=== PATIENT | female | born 1985 | race African-American/Black ===

== ENCOUNTER 2019-03-09 09:45 | Emergency (ER) | payer OTHER, MEDICAID ==
[~2019-03-09] VITALS: Ht 165.1 cm; Wt 107.0 kg
[2019-03-09 10:30] VITALS: BP 122/57
== END 2019-03-09 11:21 | disposition home or self-care (01) ==
LOC: ER 09:45
DX: J06.9 Acute upper respiratory infection, unspecified (principal)
CPT/HCPCS: 99283

== ENCOUNTER 2019-03-10 09:54 | Emergency (ER) | payer MEDICAID ==
[~2019-03-10] VITALS: Ht 165.1 cm; Wt 107.0 kg
[2019-03-10] MEDS ORDERED: ACETAMINOPHEN 325MG TABLET PO STA (13:09)
[2019-03-10] MEDS ORDERED: ALBUTEROL (0.083%) 2.5MG/3ML NEB HHN STA (13:09)
[2019-03-10 13:54] VITALS: BP 134/79
== END 2019-03-10 13:56 | disposition home or self-care (01) ==
LOC: ER 10:05
DX: R05 Cough (principal); R06.02 Shortness of breath; R11.10 Vomiting, unspecified
CPT/HCPCS: 71045; 81025; 94640; 99283; J7611; Z7610

== ENCOUNTER 2021-05-25 15:21 | Emergency (ER) | payer MEDICAID ==
[~2021-05-25] VITALS: Ht 165.1 cm; Wt 98.0 kg
[2021-05-25 15:30] VITALS: BP 139/84
[2021-05-25] MEDS ORDERED: HYDR453.3 TP (15:57)
== END 2021-05-25 16:35 | disposition home or self-care (01) ==
LOC: ER 15:21
DX: L20.9 Atopic dermatitis, unspecified (principal); L81.0 Postinflammatory hyperpigmentation; Z98.51 Tubal ligation status
CPT/HCPCS: 99282

== ENCOUNTER 2021-08-06 16:55 | Emergency (ER) | payer MEDICAID ==
[~2021-08-06] VITALS: Ht 165.1 cm; Wt 96.0 kg
[~2021-08-06 16:55] MED LIST: HYDR453.3 TP
[2021-08-06 17:01] VITALS: BP 146/95
[2021-08-06] MEDS ORDERED: CYCL10TA21 MT (23:33)
[2021-08-06] MEDS ORDERED: NAPR-1176 MT (23:33)
== END 2021-08-06 20:17 | disposition left against medical advice (07) ==
LOC: ER 16:55
DX: Z53.21 Procedure and treatment not carried out due to patient leaving prior to being seen by health care provider (principal)

== ENCOUNTER 2021-08-06 22:12 | Emergency (ER) | payer MEDICAID ==
[~2021-08-06] VITALS: Ht 172.7 cm; Wt 100.0 kg
[2021-08-06] MEDS ORDERED: CYCLOBENZAPRINE 10MG TABLET PO ONE (23:30)
[2021-08-06] MEDS ORDERED: KETOROLAC 30MG/ML VIAL IM ONE (23:30)
[2021-08-06] MEDS ORDERED: CYCL10TA21 MT (23:33)
[2021-08-06] MEDS ORDERED: NAPR-1176 MT (23:33)
[2021-08-07 00:27] VITALS: BP 122/87
[2021-08-07] MEDS ORDERED: CYCLOBENZAPRINE 10MG TABLET PO SCH (00:30)
== END 2021-08-07 00:33 | disposition home or self-care (01) ==
LOC: ER 22:12
DX: S80.12XA Contusion of left lower leg, initial encounter (principal); S80.11XA Contusion of right lower leg, initial encounter; W22.12XA Striking against or struck by front passenger side automobile airbag, initial encounter; V49.59XA Passenger injured in collision with other motor vehicles in traffic accident, initial encounter; Y93.89 Activity, other specified; Y92.488 Other paved roadways as the place of occurrence of the external cause
CPT/HCPCS: 81025; 96372; 99283; J1885

== ENCOUNTER 2022-06-25 12:21 | Emergency (ER) | payer MEDICAID ==
[~2022-06-25] VITALS: Ht 165.1 cm; Wt 98.0 kg
[~2022-06-25 12:21] MED LIST changes: +CYCL10TA21 MT; +NAPR-1176 MT
[2022-06-25] MEDS ORDERED: KETOROLAC 60MG/2ML VIAL IM ONE (13:15)
[2022-06-25 13:25] LABS: CLARITY URINE CLOUDY (CLEAR); COLOR URINE YELLOW (YELLOW); KETONES URINE TRACE (NEGATIVE); LEUKOCYTE ESTERASE URINE 3+ (NEGATIVE); NITRITE URINE NEGATIVE (NEGATIVE); OCCULT BLOOD URINE NEGATIVE (NEGATIVE); PROTEIN URINE TRACE (NEGATIVE)
[2022-06-25] MEDS ORDERED: CEPH500C2 MT (16:00)
[2022-06-25] MEDS ORDERED: TOPUD PO (16:01)
[2022-06-25 16:39] VITALS: BP 130/70
== END 2022-06-25 16:41 | disposition home or self-care (01) ==
LOC: ER 12:21
DX: N39.0 Urinary tract infection, site not specified (principal); Z20.822 Contact with and (suspected) exposure to COVID-19
CPT/HCPCS: 81003; 81025; 87086; 87426; 87804; 96372; 99283; C9803; J1885

== ENCOUNTER 2022-06-30 12:02 | Emergency (ER) | payer MEDICAID ==
[~2022-06-30] VITALS: Ht 165.1 cm; Wt 98.0 kg
[~2022-06-30 12:02] MED LIST changes: +CEPH500C2 MT; +TOPUD PO
[2022-06-30 13:29] VITALS: BP 117/86
== END 2022-06-30 13:30 | disposition home or self-care (01) ==
LOC: ER 12:13
DX: Z71.89 Other specified counseling (principal)
CPT/HCPCS: 81025; 99282

== ENCOUNTER 2022-07-05 17:55 | Emergency (ER) | payer MEDICAID ==
[~2022-07-05] VITALS: Ht 165.1 cm; Wt 98.0 kg
[2022-07-05 18:06] VITALS: BP 146/100
[2022-07-05] MEDS ORDERED: ACETAMINOPHEN 325MG TABLET PO ONE (22:45)
[2022-07-06 00:33] LABS: CLARITY URINE TURBID (CLEAR); COLOR URINE BLOODY (YELLOW)
[2022-07-06 00:34] LABS: KETONES URINE NEGATIVE (NEGATIVE); OCCULT BLOOD URINE 1+ (NEGATIVE); PROTEIN URINE 1+ (NEGATIVE); SPECIFIC GRAVITY URINE 1.027 (1.005-1.030)
[2022-07-06 00:35] LABS: LEUKOCYTE ESTERASE URINE 3+ (NEGATIVE); NITRITE URINE POSITIVE (NEGATIVE); UROBILINOGEN URINE 0.2 E.U./dL (0.2-1.0)
[2022-07-06] MEDS ORDERED: SULF1TAB48 MT (00:59)
== END 2022-07-06 01:15 | disposition home or self-care (01) ==
LOC: ER 17:55
DX: N39.0 Urinary tract infection, site not specified (principal); Z98.890 Other specified postprocedural states; Z98.51 Tubal ligation status; Z79.899 Other long term (current) drug therapy
CPT/HCPCS: 81003; 81025; 99283

== ENCOUNTER 2022-08-30 02:32 | Emergency (ER) | payer MEDICAID ==
[~2022-08-30] VITALS: Ht 165.1 cm; Wt 86.9 kg
[~2022-08-30 02:32] MED LIST changes: +SULF1TAB48 MT; +TOPUD MT
[2022-08-30 03:18] VITALS: BP 103/67; O2SAT 100
[2022-08-30] MEDS ORDERED: NAPR-1176 MT (04:03)
[2022-08-30 04:20] VITALS: PULSE 100; RESP 16; TEMP 98.6
== END 2022-08-30 04:12 | disposition home or self-care (01) ==
LOC: ER 02:32
DX: M25.561 Pain in right knee (principal); E80.0 Hereditary erythropoietic porphyria; Z98.890 Other specified postprocedural states; Z98.51 Tubal ligation status; Z79.899 Other long term (current) drug therapy
CPT/HCPCS: 81025; 99282

== ENCOUNTER 2022-09-18 22:39 | Emergency (ER) | payer MEDICAID ==
[~2022-09-18] VITALS: Ht 165.1 cm; Wt 82.5 kg
[2022-09-18 23:06] VITALS: BP 115/78; O2SAT 100
[2022-09-19] MEDS ORDERED: ACETAMINOPHEN 325MG TABLET PO ONE (00:45)
[2022-09-19] MEDS ORDERED: TOPUD MT (02:02)
[2022-09-19 02:25] VITALS: PULSE 85; RESP 18; TEMP 97.9
== END 2022-09-19 02:00 | disposition home or self-care (01) ==
LOC: ER 22:39
DX: M79.89 Other specified soft tissue disorders (principal); E78.00 Pure hypercholesterolemia, unspecified; Z87.440 Personal history of urinary (tract) infections; Z98.51 Tubal ligation status; Z98.890 Other specified postprocedural states; Z79.899 Other long term (current) drug therapy
CPT/HCPCS: 81025; 93970; 99284

== ENCOUNTER 2022-10-15 05:32 | Emergency (ER) | payer MEDICAID ==
[~2022-10-15] VITALS: Ht 165.1 cm; Wt 81.9 kg
[2022-10-15 05:40] VITALS: BP 121/76; PULSE 100; RESP 18; TEMP 98.4; O2SAT 99
[2022-10-15] MEDS ORDERED: TOPUD PO (06:13)
[2022-10-15] MEDS ORDERED: ACETAMINOPHEN 325MG TABLET PO ONE (06:15)
[2022-10-15] MEDS ORDERED: ONDANSETRON HCL 4MG TABLET PO ONE (06:15)
== END 2022-10-15 06:34 | disposition home or self-care (01) ==
LOC: ER 05:32
DX: M79.18 Myalgia, other site (principal)
CPT/HCPCS: 99281

== ENCOUNTER 2023-02-26 16:07 | Emergency (ER) | payer MEDICAID ==
[~2023-02-26] VITALS: Ht 167.6 cm; Wt 66.0 kg
[2023-02-26 16:18] VITALS: BP 118/81; PULSE 83; RESP 12; O2SAT 100
[2023-02-26] MEDS ORDERED: ACETAMINOPHEN 325MG TABLET PO ONE (19:15)
[2023-02-26 19:21] VITALS: TEMP 98.3
[2023-02-26 19:30] LABS: BASOPHILS % 0.7 % (0.0-2.0); DIFFERENTIAL COMMENT 0; EOSINOPHILS % 4.1 % (0.0-5.0); HEMATOCRIT. 37.5 % (36.0-48.0); HEMOGLOBIN. 12.4 g/dL (12.0-16.0); LYMPHOCYTES % 32.5 % (20.0-50.0); MEAN CORPUSCULAR HEMOGLOBIN 28.3 pg (28.0-32.0); MEAN CORPUSCULAR HGB CONC 33.1 g/dL (31.0-37.0); MEAN CORPUSCULAR VOLUME 85.3 fL (81.0-99.0); MEAN PLATELET VOLUME 9.3 fl (7.4-10.4); MONOCYTES % 6.1 % (2.0-8.0); NEUTROPHILS % 56.6 % (40.0-76.0); PLATELET 257 x1000/uL (130-400); RED BLOOD CELL COUNT 4.39 mill/uL (4.2-5.4); RED CELL DISTRIBUTION WIDTH 14.3 % (11.6-14.6); WHITE BLOOD COUNT 7.4 x1000/uL (4.5-11.0)
[2023-02-26 19:40] LABS: HCG SCREEN NEGATIVE
[2023-02-26 19:46] LABS: ALANINE AMINOTRANSFERASE 27 IU/L (10-49); ALBUMIN 3.9 g/dL (3.2-4.8); ASPARTATE AMINOTRANSFERASE 23 IU/L (<34); BILIRUBIN TOTAL 0.4 mg/dL (0.1-1.0); CALCIUM 8.9 mg/dL (8.7-10.4); CARBON DIOXIDE 29 mEq/L (21-32); CHLORIDE 108 mEq/L (98-107); CREATININE 0.6 mg/dL (0.6-1.0); GLUCOSE 93 mg/dL (70-105); POTASSIUM 3.6 mEq/L (3.5-5.1); PROTEIN TOTAL 6.1 g/dL (6.0-8.3); SODIUM 139 mEq/L (136-145); THYROID STIMULATING HORMONE 1.38 uIU/mL (0.55-4.78); UREA NITROGEN BLOOD 11 mg/dL (9-23)
[2023-02-26] MEDS ORDERED: TOPUD MT (19:59)
== END 2023-02-26 21:02 | disposition home or self-care (01) ==
LOC: ER 16:07
DX: R10.9 Unspecified abdominal pain (principal); Z98.890 Other specified postprocedural states; Z98.51 Tubal ligation status
CPT/HCPCS: 36415; 80053; 84443; 84703; 85025; 99283